=== PATIENT | male | born 1970 | race African-American/Black ===

== ENCOUNTER 2017-01-22 05:11 | Emergency (ER) | payer SELFPAY ==
[~2017-01-22] VITALS: Ht 167.6 cm; Wt 68.0 kg
[2017-01-22] MEDS ORDERED: Mylanta II UD 30ml ORAL ONE (05:30)
[2017-01-22] MEDS ORDERED: Famotidine 20 MG/ 2ML VIAL IVP ONE (05:30)
--- NOTE | 2017-01-22 05:32 | Emergency Room Report ---
History of Present Illness General Chief Complaint: To Be Triaged Source: Patient Present Illness HPI 46YOM walk-in with right lower abd pain and "shaky hands." Denies nausea/vomiting, diarrhea, fever/chills Drinks "a little bit" daily - last drink "many hours ago" and only had "small amount of beer." No known medical or surgical problems Smokes MJ as well Allergies: Coded Allergies: No Known Allergies (Unverified , 01/22/17) Patient History Past Medical History: none Past Surgical History: none Pertinent Family History: none Social History: Reports: alcohol use, drug use, smoking Immunizations: UTD Reviewed Nursing Documentation: PMH: Agreed, PSxH: Agreed Review of Systems All Other Systems: negative except mentioned in HPI Physical Exam Sp02 EP Interpretation: reviewed, normal General Appearance: normal inspection, well appearing, no apparent distress, alert, GCS 15, non-toxic Head: normocephalic, atraumatic Eyes: bilateral eye EOMI, bilateral eye PERRL ENT: normal ENT inspection, hearing grossly normal, normal voice Neck: normal inspection, full range of motion, supple, no bony tend Respiratory: normal inspection, lungs clear, normal breath sounds, no respiratory distress, no retraction, no wheezing Cardiovascular #1: regular rate, rhythm, no edema Gastrointestinal: normal inspection, normal bowel sounds, soft, no guarding, no hernia, other - TTP to RLQ with guarding involuntarily. No rebound or peritonitis Genitourinary: no CVA tenderness Musculoskeletal: normal inspection, back normal, normal range of motion, Carlos' s Sign negative Neurologic: normal inspection, alert, oriented x3, responsive, online health and fitness coach III-XII nml as tested, motor strength/tone normal, speech normal Psychiatric: normal inspection, judgement/insight normal, mood/affect normal Medical Decision Making Diagnostic Impression: Primary Impression: Abdominal pain Qualified Codes: R10.31 - Right lower quadrant pain Additional Impressions: Alcohol intoxication Qualified Codes: F10.920 - Alcohol use, unspecified with intoxication, uncomplicated Polysubstance abuse ER Course RLQ abd pain - VSS. Afebrile. - Labs show leukopenia. But LFTs, lipase normal. UTOX + for amphetamines, benzos. ETOH level elevated - CTAP not done but patient doesnt want to stay States he feels better after GI cocktail, pepcid. States "has things to do." Patient is clinically sober, ambulating with steady gait, tolerating PO, and is free from from distracting injury, and has intact judgement and capacity to decide to leave against medical advice. I cannot legally hold patient against his will at this time as he is alert and oriented - had taken the bus here originally on his own power - and wants to leave ER/hospital. Patient came in "shaky hands" and RLQ abd pain. .I'm concerned for possible appendicitis or cholecystitis or sepsis. Patient verbalized understanding of my concern and my need to do CT imaging of abdomen, possibly additional tests, give antibiotics as needed and/or admit to hospital for further management. I explained to patient the risks of leaving AMA and patient informed that if they he leaves, he could get worse, he could become become critically ill, possibly become disabled or . Patient verbalized back to me understanding of these risks but still wants to leave. Status: improved Disposition: AGAINST MEDICAL ADVICE PILO WARD M.D. Jan 22, 2017 05:32
[2017-01-22 06:10] LABS: MEAN CORPUSCULAR HEMOGLOBIN 33.7 PG (27.0-31.0); MEAN CORPUSCULAR VOLUME 102 FL (80-99); MEAN PLATELET VOLUME 5.7 FL (6.5-10.1); PLATELET COUNT 240 K/UL (150-450); RED BLOOD COUNT 4.24 M/UL (4.70-6.10); RED CELL DISTRIBUTION WIDTH 11.5 % (11.6-14.8); WHITE BLOOD COUNT 2.9 K/UL (4.8-10.8)
[2017-01-22 06:15] LABS: APPEARANCE,URINE CLEAR; KETONES,URINE NEGATIVE (NEGATIVE); LEUKOCYTE ESTERASE ,URINE NEGATIVE (NEGATIVE); NITRITE,URINE NEGATIVE (NEGATIVE); PH,URINE 5 (4.5-8.0); PROTEIN,URINE NEGATIVE (NEGATIVE); UROBILINOGEN,URINE NORMAL MG/DL (0.0-1.0)
[2017-01-22 06:23] LABS: ALANINE AMINOTRANSFERASE 26 U/L (3-41); ALBUMIN/GLOBULIN RATIO 1.4 (1.0-2.7); ALCOHOL 192 mg/dL; ANION GAP 14 (5-15); ASPARTATE AMINO TRANSFERASE 37 U/L (5-40); CALCIUM 9.4 mg/dL (8.6-10.2); CARBON DIOXIDE 26 mEQ/L (20-30); CHLORIDE 99 mEQ/L (98-107); CREATININE 0.8 mg/dL (0.7-1.2); GLOMERULAR FILTRATION RATE > 60 mL/min (>60); HEMOLYSIS 6; LIPASE 49 U/L (< 60); POTASSIUM 3.8 mEQ/L (3.4-4.9); SODIUM 139 mEQ/L (135-145); TOTAL PROTEIN 8.3 g/dL (6.6-8.7)
[2017-01-22 06:37] VITALS: BP 124/87
== END 2017-01-22 06:43 | disposition left against medical advice (07) ==
LOC: EMR 05:41
DX: R10.31 Right lower quadrant pain (principal); F10.920 Alcohol use, unspecified with intoxication, uncomplicated; F17.200 Nicotine dependence, unspecified, uncomplicated; F12.10 Cannabis abuse, uncomplicated
CPT/HCPCS: 36415; 80053; 80300; 81003; 83690; 85025; 96374; 96375; 99284; G0480; S0028; 80329

== ENCOUNTER 2017-12-03 16:27 | Emergency (ER) | payer MEDICAID ==
[~2017-12-03] VITALS: Ht 177.8 cm; Wt 72.6 kg
[2017-12-03] MEDS ORDERED: LORazepam Inj 2mg/ml 1ml IV ONE ×2 (16:45→19:15)
[2017-12-03 17:12] LABS: BASOPHILS % (AUTO) 3.1 % (0.0-2.0); EOSINOPHILS % (AUTO) 0.5 % (0.0-3.0); HEMATOCRIT 33.7 % (42.0-52.0); HEMOGLOBIN 11.2 G/DL (14.2-18.0); LYMPHOCYTES % (AUTO) 24.5 % (20.0-45.0); MEAN CORPUSCULAR VOLUME 89 FL (80-99); NEUTROPHILS % (AUTO) 59.9 % (45.0-75.0); PLATELET COUNT 334 K/UL (150-450); RED BLOOD COUNT 3.81 M/UL (4.70-6.10); RED CELL DISTRIBUTION WIDTH 15.9 % (11.6-14.8); WHITE BLOOD COUNT 5.9 K/UL (4.8-10.8)
[2017-12-03 17:18] LABS: ANION GAP 16 mmol/L (5-15); BLOOD UREA NITROGEN 12 mg/dL (7-18); CALCIUM 9.2 MG/DL (8.5-10.1); CARBON DIOXIDE 22 MMOL/L (21-32); CHLORIDE 102 MMOL/L (98-107); CREATININE 0.9 MG/DL (0.55-1.30); POTASSIUM 4.2 MMOL/L (3.5-5.1); SODIUM 140 MMOL/L (136-145)
[2017-12-03 17:23] LABS: ALANINE AMINOTRANSFERASE 40 U/L (12-78); ALBUMIN/GLOBULIN RATIO 0.8 (1.0-2.7); ALKALINE PHOSPHATASE 83 U/L (46-116); ASPARTATE AMINO TRANSFERASE 34 U/L (15-37); BILIRUBIN,TOTAL 0.2 MG/DL (0.2-1.0)
[2017-12-03 18:00] VITALS: BP 129/76
[2017-12-03 19:05] LABS: APPEARANCE,URINE CLEAR; BILIRUBIN, URINE NEGATIVE (NEGATIVE); COLOR,URINE AMBER; GLUCOSE, URINE (UA) NEGATIVE (NEGATIVE); KETONES,URINE 1+ (NEGATIVE); LEUKOCYTE ESTERASE ,URINE NEGATIVE (NEGATIVE); NITRITE,URINE NEGATIVE (NEGATIVE); PH,URINE 5 (4.5-8.0); PROTEIN,URINE 1+ (NEGATIVE); UROBILINOGEN,URINE NORMAL MG/DL (0.0-1.0)
[2017-12-03 19:15] VITALS: BP 93/76
--- NOTE | 2017-12-03 19:18 | Emergency Room Report ---
History of Present Illness General Chief Complaint: Alcohol Intoxication Source: Patient, EMS Present Illness HPI Patient presents via EMS with c/o feeling like he is about to seize and withdrawing from alcohol. Drinks daily and gets shakes is not drinking. Years since last seizure and not taking any antiepileptic medications. Denies SI or HI. No vomiting, no hematemesis, melena, diarrhea. No dysuria. No recent trauma. No rashes. Denies pain. No fevers or chills. H/O asthma - no wheezing. No headaches, change vision, neck pain, extremity pain. H/O psych illness, not state diagnosis. Allergies: Coded Allergies: No Known Allergies (Unverified , 01/22/17) Patient History Past Medical History: see triage record Social History: Reports: smoking, alcohol use, drug use Reviewed Nursing Documentation: PMH: Agreed; PSxH: Agreed Nursing Documentation-PMH Hx Asthma: Yes Review of Systems All Other Systems: negative except mentioned in HPI Physical Exam Vital Signs Date Time Temp Pulse Resp B/P (MAP) Pulse Ox O2 Delivery O2 Flow Rate FiO2 12/03/17 16:23 99.0 102 18 145/86 99 Room Air 99.0 Sp02 EP Interpretation: reviewed, normal General Appearance: well appearing, no apparent distress, GCS 15 Head: normocephalic Eyes: bilateral eye PERRL, bilateral eye Scleral Injection ENT: moist mucus membranes - no lingual trauma Neck: supple Respiratory: lungs clear, normal breath sounds Cardiovascular #1: regular rate, rhythm Cardiovascular #2: 2+ radial (R) Gastrointestinal: normal inspection, normal bowel sounds, non tender, no mass, non-distended Musculoskeletal: back normal, gait/station normal, normal range of motion Neurologic: alert, motor strength/tone normal - slight tremor, DTRs symmetric, sensory intact, cerebellar normal, normal gait, speech normal, oriented - X2 Psychiatric: no suicidal/homicidal ideation, anxious, other - slight paramoind ideation Skin: normal inspection, warm/dry Medical Decision Making Diagnostic Impression: Primary Impression: Alcohol withdrawal Qualified Codes: F10.239 - Alcohol dependence with withdrawal, unspecified Additional Impressions: Dehydration Amphetamine abuse ER Course Patient presents with alcohol withdrawal and anxiety. DDX: alcohol withdrawal, electrolyte abnormality, exacerbation of underlying psych problems amongst others. No evidence of seizure activity. Denies SI or HI. Patient evaluated with EKG, labs. Treatment with IV hydration, ativan. No dyspnea or neurologic findings/trauma - imaging not indicated. Labs significant for min anemia, substance abuse. BA 146. Patient improved somewhat after Ativan. Still paranoid at this time. He needs IV hydration and also another dose of Ativan. Also the plan is to give Seroquel. He states he last took Seroquel a week ago. Patient states he is uncomfortable being treated in our ED and wants to leave. Denies SI or HI. Somewhat delusional with paranoid ideation, however he is purposeful and wants to seek treatment elsewhere. I discussed risk of with patient and he still insists on leaving. Told to return if he changes his mind. I anticipate some additional improvement when amphetamines wear off and Seroquel starts to work. Laboratory Tests Test 12/03/17 16:55 12/03/17 18:15 White Blood Count 5.9 K/UL (4.8-10.8) Red Blood Count 3.81 M/UL (4.70-6.10) L Hemoglobin 11.2 G/DL (14.2-18.0) L Hematocrit 33.7 % (42.0-52.0) L Mean Corpuscular Volume 89 FL (80-99) Mean Corpuscular Hemoglobin 29.4 PG (27.0-31.0) Mean Corpuscular Hemoglobin Concent 33.2 G/DL (32.0-36.0) Red Cell Distribution Width 15.9 % (11.6-14.8) H Platelet Count 334 K/UL (150-450) Mean Platelet Volume 5.2 FL (6.5-10.1) L Neutrophils (%) (Auto) 59.9 % (45.0-75.0) Lymphocytes (%) (Auto) 24.5 % (20.0-45.0) Monocytes (%) (Auto) 12.0 % (1.0-10.0) H Eosinophils (%) (Auto) 0.5 % (0.0-3.0) Basophils (%) (Auto) 3.1 % (0.0-2.0) H Sodium Level 140 MMOL/L (136-145) Potassium Level 4.2 MMOL/L (3.5-5.1) Chloride Level 102 MMOL/L (98-107) Carbon Dioxide Level 22 MMOL/L (21-32) Anion Gap 16 mmol/L (5-15) H Blood Urea Nitrogen 12 mg/dL (7-18) Creatinine 0.9 MG/DL (0.55-1.30) Estimate Glomerular Filtration Rate > 60 mL/min (>60) Glucose Level 89 MG/DL (74-106) Calcium Level 9.2 MG/DL (8.5-10.1) Total Bilirubin 0.2 MG/DL (0.2-1.0) Aspartate Amino Transferase (AST) 34 U/L (15-37) Alanine Aminotransferase (ALT) 40 U/L (12-78) Alkaline Phosphatase 83 U/L (46-116) Troponin I 0.000 ng/mL (0.000-0.056) Total Protein 9.2 G/DL (6.4-8.2) H Albumin 4.0 G/DL (3.4-5.0) Globulin 5.2 g/dL Albumin/Globulin Ratio 0.8 (1.0-2.7) L Salicylates Level 1.9 ug/mL (2.8-20) L Acetaminophen Level < 2 MCG/ML (10-30) L Serum Alcohol 146 mg/dL Urine Color Olya Urine Appearance Clear Urine pH 5 (4.5-8.0) Urine Specific [place] 1.025 (1.005-1.035) Urine Protein 1+ (NEGATIVE) H Urine Glucose (UA) Negative (NEGATIVE) Urine Ketones 1+ (NEGATIVE) H Urine Occult Blood Negative (NEGATIVE) Urine Nitrite Negative (NEGATIVE) Urine Bilirubin Negative (NEGATIVE) Urine Ictotest Negative Urine Urobilinogen Normal MG/DL (0.0-1.0) Urine Leukocyte Esterase Negative (NEGATIVE) Urine RBC 0-2 /HPF (0 - 0) H Urine WBC 0 /HPF (0 - 0) Urine Squamous Epithelial Cells Occasional /LPF Urine Bacteria Occasional /HPF (NONE) Urine Mucus Few /LPF (NONE/OCC) H Urine Opiates Screen Negative (NEGATIVE) Urine Barbiturates Screen Negative (NEGATIVE) Phencyclidine (PCP) Screen Negative (NEGATIVE) Urine Amphetamines Screen Positive (NEGATIVE) H Urine Benzodiazepines Screen Positive (NEGATIVE) H Urine Cocaine Screen Negative (NEGATIVE) Urine Marijuana (THC) Screen Negative (NEGATIVE) EKG Diagnostic Results Rate: tachycardiac ST Segments: no acute changes Rhythm Strip Diag. Results EP Interpretation: yes Rhythm: no PVC's, no ectopy, other - Sinus tachycardia Status: improved Disposition: AGAINST MEDICAL ADVICE Condition: Improved Socrates Cobos M.D. Dec 03, 2017 19:18
[2017-12-03 20:35] VITALS: BP 128/80
--- NOTE | 2017-12-06 14:13 | Cardiology Report ---
APPROVED REPORT EKG Measurement Heart [id number] Sin[address] N[address] abnormality Abnormal ECG
== END 2017-12-03 20:35 | disposition left against medical advice (07) ==
LOC: EDBD 16:27 → EMR 17:45
DX: F10.239 Alcohol dependence with withdrawal, unspecified (principal); E86.0 Dehydration; F15.10 Other stimulant abuse, uncomplicated; J45.909 Unspecified asthma, uncomplicated; F17.200 Nicotine dependence, unspecified, uncomplicated
CPT/HCPCS: 36415; 80053; 80307; 80329; 81003; 84484; 85025; 93005; 96360; 96361; 96374; 96375; 99283